=== PATIENT | male | born 1985 | race Caucasian/White ===

== ENCOUNTER 2018-04-02 14:26 | Emergency (ER) | payer OTHER ==
[~2018-04-02] VITALS: Ht 188 cm; Wt 95.3 kg
[~2018-04-02 14:26] MED LIST: MULTIVITAMIN1 TAB PO; OMEGA-3 EPA &1000 MG PO; VALTREX1 GM PO
--- NOTE | 2018-04-02 14:47 | ED SKIN/ALLERGY COMPLAINT ---
History of Present Illness General Chief Complaint: Animal/Insect Bite Stated Complaint: BEE BITE/ALLERGY Source: patient, family, old records Exam Limitations: no limitations Vital Signs & Intake/Output Vital Signs & Intake/Output Vital Signs Date Time Temp Pulse Resp B/P B/P Pulse O2 O2 Flow FiO2 Mean Ox Delivery Rate 04/02 1702 98.0 63 16 128/69 97 Room Air 04/02 1541 98.7 58 18 133/79 97 Room Air 04/02 1528 60 04/02 1431 97.1 116 20 158/90 96 Room Air Allergies Coded Allergies: bee venom protein (honey bee) (Severe, DIFF BREATHING 04/02/18) Reconcile Medications Diphenhydramine HCl (Benadryl Allergy) 25 MG TABLET 1-2 TAB PO Q6P PRN allergy VALACYCLOVIR HCL (Valtrex) 1,000 MG TABLET 2 TAB PO BID ORAL ULCERS Triage Note: PT TO TRIAGE STATES THAT HE IS HAVING SOB/HIVES/ITCHY AFTER BEING STUNG BY 2 BEES. PT NOTED WITH HIVES, UPPER LIP SWOLLEN, DIRECTLY TO ROOM AND MD AT BEDSIDE Triage Nurses Notes Reviewed? yes Onset: Just prior to arrival Duration: minute(s):, constant, continues in ED Timing: single episode today Severity: mild, moderate Location: extremities Possible Factors: insect bite, insect sting No Modifying Factors: none Associated Symptoms: change in skin texture, rash HPI: Prior to admission patient received two bee stings to bilateral arms. He complains of itchy rash redness. He denies fever chills nausea vomiting diarrhea abdominal pain chest pain shortness breath headache dysuria bleeding. Past History Travel History Traveled to [place] past 21 day No Medical History Any Pertinent Medical History? see below for history Neurological: NONE EENT: NONE Cardiovascular: NONE Respiratory: NONE Gastrointestinal: NONE Hepatic: NONE Renal: NONE Musculoskeletal: VERTEBRAE FX (2007) Psychiatric: anxiety, bipolar disease, XANAX ABUSE ETOH ABUSE Endocrine: NONE Blood Disorders: NONE Cancer(s): NONE Surgical History Surgical History: non-contributory Psychosocial History Who do you live with Significant Other What is your primary language Georgian Tobacco Use: Never used ETOH Use: denies use Illicit Drug Use: denies illicit drug use Family History Hx Contributory? No Review of Systems Review of Systems Constitutional: Reports: no symptoms. EENTM: Reports: no symptoms. Respiratory: Reports: no symptoms. Cardiovascular: Reports: no symptoms. GI: Reports: no symptoms. Genitourinary: Reports: no symptoms. Musculoskeletal: Reports: no symptoms. Skin: Reports: see HPI, rash. Neurological/Psychological: Reports: no symptoms. Hematologic/Endocrine: Reports: no symptoms. Immunologic/Allergic: Reports: no symptoms. All Other Systems: Reviewed and Negative Physical Exam Physical Exam General Appearance: well developed/nourished, alert, awake, anxious, mild distress Head: atraumatic, normal appearance Eyes: Bilateral: normal appearance, PERRL, EOMI. Ears, Nose, Throat: normal pharynx, normal ENT inspection, hearing grossly normal Neck: normal inspection, supple, full range of motion Respiratory: normal breath sounds, chest non-tender, no respiratory distress, quiet respiration, lungs clear Cardiovascular: regular rate/rhythm, normal peripheral pulses, norml femoral pulses equa Peripheral Pulses: 4+ carotid (R), 4+ carotid (L) Gastrointestinal: normal bowel sounds, soft, non-tender, no organomegaly Back: normal inspection, normal range of motion, no vertebral tenderness Extremities: normal inspection, normal capillary refill, normal range of motion, no edema Neurologic/Psych: no motor/sensory deficits, awake, alert, oriented x 3, normal gait, normal mood/affect, 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 Skin: intact, warm/dry, rash Skin Problem Location: neck, upper extremities Skin Problem Character: erythema, rash, urticarial Lymphatic: no anterior cervical mariana Progress Differential Diagnosis: allergic reaction, anaphylaxis, contact dermatitis, urticaria Plan of Care: Current Medications Sig/Cr Start time Last Medication Dose Stop Time Status Admin Diphenhydramine HCl 50 MG ONCE ONE 04/02 1445 04/02 (Benadryl) 04/02 1446 144 Famotidine 20 MG ONCE ONE 04/02 1445 AC 04/02 (Pepcid) 04/02 1446 144 Methylprednisolone 125 MG ONCE ONE 04/02 1445 AC 04/02 (Solu Medrol) 04/02 144 144 Sodium Chloride 1,000 ML BOLUS ONE 04/02 1445 AC 04/02 (Normal Saline 0.9%) 04/02 1542 1443 Departure Departure Time of Disposition: 1651 Disposition: HOME OR SELF CARE Condition: Stable Clinical Impression Primary Impression: Bee sting reaction Referrals: Neeraj MD,Sujana (PCP/Family) Departure Forms: Customer Survey General Discharge Information Prescriptions: Current Visit Scripts Diphenhydramine HCl (Benadryl Allergy) 1-2 TAB PO Q6P PRN allergy #30 TAB Ref 1
[2018-04-02] MEDS ORDERED: BENADRYL ALLERG25 M2 PO (16:53)
[2018-04-02 17:02] VITALS: BP 128/69
== END 2018-04-02 17:03 ==
LOC: ERH 14:26
DX: T63.441A Toxic effect of venom of bees, accidental (unintentional), initial encounter (principal)
CPT/HCPCS: 96374; 96375; J1200; J2930